=== PATIENT | male | born 1985 | race Caucasian/White ===

== ENCOUNTER 2018-09-17 14:46 | Outpatient (CLI) | payer BC | END 2018-09-17 17:00 | disposition home or self-care (01) | LOC: SLEEP 14:46 | PROVIDERS: ATTEND Otolaryngology Otolaryngology/Facial Plastic Surgery | DX: G47.33 Obstructive sleep apnea (adult) (pediatric) (principal); G47.10 Hypersomnia, unspecified; R06.83 Snoring ==

== ENCOUNTER → 2021-03-12 | Outpatient (CLI) | payer BC | LOC: LABNPT 06:36 | PROVIDERS: ATTEND Otolaryngology Otolaryngology/Facial Plastic Surgery | DX: G47.33 Obstructive sleep apnea (adult) (pediatric) (principal); Z20.822 Contact with and (suspected) exposure to COVID-19 | CPT/HCPCS: 87635 ==

== ENCOUNTER 2021-03-14 20:38 | Outpatient (CLI) | payer BC | END 2021-03-15 08:00 | disposition home or self-care (01) | LOC: SLEEP 20:38 | PROVIDERS: ATTEND Otolaryngology Otolaryngology/Facial Plastic Surgery | DX: G47.33 Obstructive sleep apnea (adult) (pediatric) (principal) | CPT/HCPCS: 95811 ==